=== PATIENT | male | born 1945 | race Caucasian/White ===

== ENCOUNTER 2023-08-20 11:51 | Inpatient (IN) | payer MEDICARE ==
[~2023-08-20 11:51] MED LIST: Iopamidol 370 76% 100 ML VIAL ONE
[2023-08-20] MEDS ORDERED: Magnesium Sulfate/D5W 1 GM/100 ML BAG ONE (12:24)
[2023-08-20] MEDS ORDERED: Thiamine 100 MG TAB ONE (12:24)
[2023-08-20 12:34] LABS: #Eosinphils 0.3 10x3/uL (0.0-0.5); #Monocytes 0.7 10x3/uL (0.0-1.1); #Neutrophils 3.5 10x3/uL (1.5-8.4); %Basophils 0.7 % (0.0-2.0); %Eosinophils 4.7 % (0.0-6.0); %Lymphocytes 23.8 % (18.0-47.0); %Monocytes 10.9 % (0.0-10.0); %Neutrophils 59.4 % (40.0-75.0); Hematocrit 41.5 % (38.8-50.0); Hemoglobin 13.8 g/dL (13.5-17.5); Mean Corpuscular HGB CONC 33.3 g/dL (32.0-36.0); Mean Corpuscular Hemoglobin 33.4 pg (27.0-33.0); Mean Corpuscular Volume 100.5 fl (81.2-95.1); Mean Platelet Volume 10.6 fl (7.4-10.4); Platelet Count 171 10x3/uL (150-450); RBC Distribution Width 13.4 % (11.5-14.5); Red Blood Cell (RBC) Count 4.13 10x6/uL (4.32-5.72)
[2023-08-20 12:42] LABS: ALT (SGPT) 33 U/L (8-55); AST (SGOT) 48 U/L (5-34); Albumin 3.5 g/dL (3.4-4.8); Alcohol Less than 10.0 mg/dL (Less than 10); Alkaline Phosphatase 80 U/L (40-110); Anion Gap 13 mmol/L (10-20); BUN (Urea Nitrogen) 14 mg/dL (8.4-25.7); Bilirubin, Total 0.4 mg/dL (0.2-1.2); Calc. Creatinine Clearance 0 mL/min (70-130); Carbon Dioxide 27 mmol/L (23-31); Chloride 105 mmol/L (98-107); Estimated GFR 84; Globulin 2.9 g/dL (2.4-3.5); Glucose 102 mg/dL (83-110); Lipase 63 U/L (8-78); Potassium 3.9 mmol/L (3.5-5.1); Protein, Total 6.4 g/dL (5.8-8.1); Sodium 141 mmol/L (136-145)
[2023-08-20 20:19] LABS: Bilirubin Neg (Negative); Blood, Urine Negative (Negative); Clarity Clear (Clear); Glucose, Urine (Dipstick) Normal (Negative); Ketone, Urine Negative (Negative); Leukocyte Negative (Negative); Nitrite Negative (Negative); Protein, Urine (Dipstick) Negative (Neg-Trace); Urobilinogen Normal mg/dL (Less than 2)
[2023-08-20 20:34] LABS: Bacteria/HPF None Seen HPF (None Seen); CAUTI Indications for Culture Alt mental st,lethar; RBC/HPF None Seen HPF (0-3); Squamous Epithelial 0-3 HPF (0-3); WBC/HPF None Seen HPF (0-3)
[2023-08-20 20:35] LABS: Urine Culture Reflex No No
[2023-08-20 21:10] LABS: Magnesium 2.1 mg/dL (1.6-2.6)
[2023-08-20 21:17] LABS: Troponin I Less than 0.010 ng/mL (< 0.028)
[2023-08-20 21:23] LABS: PTT 28.3 sec (22.0-33.0); Prothrombin Time 10.4 sec (9.5-12.1)
[2023-08-20] MEDS ORDERED: Folic Acid 1 MG TAB ONE (21:45)
[2023-08-20] MEDS ORDERED: Folic Acid 5 MG/ML MDV IVP SCH (21:45)
[2023-08-20 23:56] VITALS: BMI 32.0
[2023-08-21 00:27] LABS: Amphetamine Not Detected (NotDetected); Barbiturates Screen Not Detected (NotDetected); Benzodiazepine Screen Detected (NotDetected); Cocaine Metabolite Screen Not Detected (NotDetected); Methadone Not Detected (NotDetected); Methamphetamine Not Detected (NotDetected); Opiate Screen Not Detected (NotDetected); Oxycodone Screen Not Detected (NotDetected); Phencyclidine (PCP) Not Detected (NotDetected); THC/Cannabinoid Screen Not Detected (NotDetected); Tricyclic Screen Not Detected (NotDetected)
[2023-08-21] MEDS ORDERED: Thiamine HCl 200 MG/2 ML VIAL SLOW IVP SCH ×2 (01:00→21:00)
[2023-08-21] MEDS: 1/2 NS w/KCL 20 mEq 1,000 ML IV SCH ×3 (01:33→21:51)
[2023-08-21 04:55] LABS: #Basophils 0.1 10x3/uL (0.0-0.2); #Eosinphils 0.3 10x3/uL (0.0-0.5); #Monocytes 0.6 10x3/uL (0.0-1.1); #Neutrophils 3.2 10x3/uL (1.5-8.4); %Basophils 1.1 % (0.0-2.0); %Eosinophils 5.3 % (0.0-6.0); %Lymphocytes 25.3 % (18.0-47.0); %Monocytes 11.2 % (0.0-10.0); %Neutrophils 56.7 % (40.0-75.0); Hematocrit 41.7 % (38.8-50.0); Hemoglobin 13.8 g/dL (13.5-17.5); Mean Corpuscular HGB CONC 33.1 g/dL (32.0-36.0); Mean Corpuscular Hemoglobin 32.6 pg (27.0-33.0); Mean Corpuscular Volume 98.6 fl (81.2-95.1); Mean Platelet Volume 10.6 fl (7.4-10.4); Platelet Count 179 10x3/uL (150-450); RBC Distribution Width 13.4 % (11.5-14.5); Red Blood Cell (RBC) Count 4.23 10x6/uL (4.32-5.72); White Blood Cell (WBC) Count 5.7 10x3/uL (3.5-10.5)
[2023-08-21 05:06] LABS: Anion Gap 13 mmol/L (10-20); BUN (Urea Nitrogen) 11 mg/dL (8.4-25.7); Calc. Creatinine Clearance 113 mL/min (70-130); Calcium 8.7 mg/dL (7.8-10.44); Carbon Dioxide 25 mmol/L (23-31); Chloride 106 mmol/L (98-107); Estimated GFR 94; Glucose 102 mg/dL (83-110); Potassium 3.9 mmol/L (3.5-5.1); Sodium 140 mmol/L (136-145)
[2023-08-21] MEDS ORDERED: Magnevist 469MG/ML 20 ML VIAL ONE (09:38)
[2023-08-21] MEDS: Folic Acid 5 MG/ML MDV SC SCH (12:36)
[2023-08-21] MEDS ORDERED: Lorazepam 1 MG TAB PO PRN (13:12)
[2023-08-21] MEDS ORDERED: Ondansetron ODT 4 MG TAB PO PRN (13:12)
[2023-08-21] MEDS ORDERED: Lorazepam 2 MG/ML VIAL IM PRN (13:12)
[2023-08-21] MEDS ORDERED: Electrolyte Replacement Protocol 1 EACH FS SCH (13:15)
[2023-08-21] MEDS ORDERED: Multivit, Therapeutic 1 TAB PO SCH (13:30)
[2023-08-21] MEDS ORDERED: Electrolyte Replacement Protocol FS PRN (13:30)
[2023-08-21] MEDS: Thiamine HCl 500 MG, Admixture Fee 1 EACH in Sodium Chloride 0.9% 50 ML IVPB SCH ×2 (14:25→21:50)
[2023-08-21 14:30] LABS: Syphilis Antibody Nonreactive (Nonreactive); Syphilis Antibody Index 0.06 S/CO (<1.00 Non-Reactive)
[2023-08-22] MEDS: Thiamine HCl 500 MG, Admixture Fee 1 EACH in Sodium Chloride 0.9% 50 ML IVPB SCH ×3 (04:08→20:26)
[2023-08-22] MEDS: 1/2 NS w/KCL 20 mEq 1,000 ML IV SCH ×3 (06:42→23:19)
[2023-08-22] MEDS ORDERED: Folic Acid 1 MG TAB PO SCH (09:00)
[2023-08-22] MEDS ORDERED: Lorazepam 1 MG TAB PO PRN ×2 (09:30→13:12)
[2023-08-22] MEDS: Multivit, Therapeutic 1 TAB PO SCH (09:34)
[2023-08-22] MEDS: Folic Acid 5 MG/ML MDV SC SCH (09:36)
[2023-08-23] MEDS: Thiamine HCl 500 MG, Admixture Fee 1 EACH in Sodium Chloride 0.9% 50 ML IVPB SCH ×3 (04:32→20:28)
[2023-08-23 06:34] LABS: #Eosinphils 0.3 10x3/uL (0.0-0.5); #Monocytes 0.6 10x3/uL (0.0-1.1); #Neutrophils 1.9 10x3/uL (1.5-8.4); %Lymphocytes 32.5 % (18.0-47.0); %Monocytes 14.7 % (0.0-10.0); %Neutrophils 44.6 % (40.0-75.0); Hematocrit 41.2 % (38.8-50.0); Hemoglobin 13.7 g/dL (13.5-17.5); Mean Corpuscular HGB CONC 33.3 g/dL (32.0-36.0); Mean Corpuscular Hemoglobin 33.3 pg (27.0-33.0); Platelet Count 180 10x3/uL (150-450); RBC Distribution Width 13.6 % (11.5-14.5); Red Blood Cell (RBC) Count 4.12 10x6/uL (4.32-5.72); White Blood Cell (WBC) Count 4.2 10x3/uL (3.5-10.5)
[2023-08-23 06:39] LABS: Anion Gap 10 mmol/L (10-20); BUN (Urea Nitrogen) 7 mg/dL (8.4-25.7); Calc. Creatinine Clearance 100 mL/min (70-130); Calcium 8.8 mg/dL (7.8-10.44); Carbon Dioxide 26 mmol/L (23-31); Chloride 111 mmol/L (98-107); Estimated GFR 90; Glucose 107 mg/dL (83-110); Potassium 4.3 mmol/L (3.5-5.1); Sodium 143 mmol/L (136-145)
[2023-08-23] MEDS: Multivit, Therapeutic 1 TAB PO SCH (08:22)
[2023-08-23] MEDS: Folic Acid 5 MG/ML MDV SC SCH (08:47)
[2023-08-23] MEDS ORDERED: Lorazepam 1 MG TAB PO PRN (13:12)
[2023-08-24] MEDS: Thiamine HCl 500 MG, Admixture Fee 1 EACH in Sodium Chloride 0.9% 50 ML IVPB SCH ×2 (04:50→12:44)
[2023-08-24] MEDS: Folic Acid 5 MG/ML MDV SC SCH (09:54)
[2023-08-24] MEDS: Multivit, Therapeutic 1 TAB PO SCH (09:55)
[2023-08-24] MEDS ORDERED: Lorazepam 0.5 MG TAB PO PRN (13:12)
[2023-08-24 16:55] VITALS: BP 133/73; TEMP 98
== END 2023-08-24 18:38 | disposition home or self-care (01) | DRG 641 ==
LOC: CSHERS 11:51 → INTOOBSV 23:09 → UNDOADMOB 23:09 → CSHTELE 23:09 → OBSVTOIN 08-22 09:43
PROVIDERS: ADMIT Family Medicine; ATTEND Hospitalist
PROC: 4A00X4Z Measurement of Central Nervous Electrical Activity, External Approach (ICD-10-PCS; principal; 2023-08-21)
DX: E51.2 Wernicke's encephalopathy (principal); F10.20 Alcohol dependence, uncomplicated; D75.89 Other specified diseases of blood and blood-forming organs; Z79.899 Other long term (current) drug therapy; T42.4X5A Adverse effect of benzodiazepines, initial encounter; I10 Essential (primary) hypertension
CPT/HCPCS: 36415; 70450; 70496; 70498; 70553; 71045; 80048; 80053; 80306; 80307; 81001; 82140; 82607; 83690; 83735; 83880; 84443; 84484; 85025; 85610; 85730; 86780; 93005; 94760; 95816; 95819; 95957; A9579; J1650; J3411; J3475; J3480; Q9967